=== PATIENT | female | born 1930 | race Caucasian/White ===

== ENCOUNTER 2016-04-24 16:20 | Emergency (ER) | payer MEDICARE, OTHER ==
[~2016-04-24] VITALS: Ht 160 cm; Wt 72.6 kg
[~2016-04-24 16:20] MED LIST: ASPI-892; BP MED?; CALC-671; CALC-793; CYCL10TA45 PO; FAMO-119 PO; FOLI0.4T2 PO; HYDR-3812 PO; HYDR1CAP2; IBUP-15 PO; IBUP-30 PO; LISI10TA; LISI10TA2 PO; LISI20TA; METO25TA PO; MULT-608; NIAC400C2; OMEG-12 PO; OMEG1CAP24 PO; OMEP-10; PRD20T PO; RANI150T90 PO; SULF-222 PO; TRAM50TA2 PO; VITAMIN B12 SHOT; [UNRECOGNIZED DRUG - OTHER]; fiber therapy
--- OUTSIDE RECORDS SUMMARY | 2016-04-24 16:26 | XMS REPORT | Continuity of Care Document ---
Author Author [facility] Organization [facility] Address Unknown Phone Unavailable Care Team Providers Care Manager Internship Name Role Phone FRANCES SHEN MD PCP Insurance Providers Payer Name Policy Number Subscriber Name Relationship Wps Medicare [id number] Janine Huang 18 Self / Same As Patient Comm Crossover Enter Ins Name [id number] Janine Huang 18 Self / Same As Patient Advance Directives Directive Response Recorded Date/Time Advance Directives No 06/16/13 7:27pm Health Care Power of Field Services Analyst No 06/16/13 7:27pm Organ Donor Yes 06/16/13 7:27pm Problems No known problems or medical conditions. Medications Medication Dose Route Sig Days/Qty Instructions Order Date Discontinued Date Status [Bp Med?] 06/23/08 02/19/09 Discontinued Lisinopril (Zestril) 02/12/09 04/07/09 Discontinued Omeprazole 02/12/09 10/01/11 Discontinued Calcium Carbonate/Vitamin D3 02/12/09 04/07/09 Discontinued Niacin 02/12/09 04/07/09 Discontinued [Natural Veg Laxative] 02/12/09 04/07/09 Discontinued Hydrocodone Bit/Acetaminophen 02/12/09 04/07/09 Discontinued Lisinopril (Zestril) 04/07/09 10/01/11 Discontinued Calcium/Vitamin D 04/07/09 05/13/13 Discontinued Multivitamins 04/07/09 05/13/13 Discontinued Aspirin 04/07/09 06/16/13 Discontinued Ranitidine Hcl 150 Mg PO DAILY 10/01/11 05/13/13 Discontinued Folic Acid 2 Each PO DAILY 10/01/11 05/13/13 Discontinued Ibuprofen 400 Mg PO 10/01/11 05/13/13 Discontinued Ibuprofen 1 Each PO BEDTIME 10/01/11 05/13/13 Discontinued [fiber therapy] 10/01/11 05/13/13 Discontinued [place]-3 Fatty Acids/Fish Oil 1 Each PO DAILY 10/01/11 05/13/13 Discontinued Metoprolol Succinate (Toprol Xl) 1 Each PO DAILY 10/01/11 05/13/13 Discontinued Lisinopril 20 Mg PO 05/13/13 Active [Vitamin B12 Shot] 05/13/13 Active Tramadol Hcl 50 Mg PO EVERY 4HRS PRN PAIN 10 Qty 05/13/13 06/16/13 Discontinued Cyclobenzaprine Hcl 10 Mg PO EVERY 8HRS PRN SPASMS 10 Qty 05/13/1311/20 Discontinued [place]-3/Dha/Epa/Fish Oil 1 Each PO DAILY 06/16/13 Active Trimethoprim/Sulfamethoxazole 1 Ea PO TWICE A DAY 14 Qty 06/16/13 Active Social History Social History Problem Response Recorded Date/Time Alcohol Use Denies Use 06/16/2013 7:27pm Recreational Drug Use No 06/16/2013 7:27pm Recent Foreign Travel No 11/27/2013 2:07pm Hospital Discharge Instructions No hospital discharge instructions. Plan of Care No plan of care. Functional Status No functional status results. Allergies, Adverse Reactions, Alerts Allergen Type Severity Reaction Status Last Updated penicillin G Allergy Unknown Active 08/29/06 Gatifloxacin Allergy Unknown Active 02/21/09 Immunizations Name Given Type Date of Pneumonia Vaccine 02/22/12 Historical Vital Signs No known vital signs results. Results No known relevant diagnostic tests, laboratory data and/or discharge summary. Procedures No known history of procedures. Encounters Encounter Location Date/Time Discharged Recurring [facility] 12/28/13 9:13am
--- NOTE | 2016-04-24 16:54 | Diagnostic Imaging Report ---
INDICATION: Right shoulder humerus pain. COMPARISON: None. EXAMINATION: Two views of the right humerus were obtained. FINDINGS: No fracture or dislocation. Articular surfaces are age-appropriate. There is no osseous lesion. IMPRESSION: No fracture or dislocation. Dictated by: Dictated on workstation # [id number]
--- NOTE | 2016-04-24 16:58 | Diagnostic Imaging Report ---
INDICATION: Right shoulder pain. COMPARISON: None. FINDINGS: 3 views of the right shoulder demonstrate no fracture or dislocation. Mild degenerative changes are present. No osseous lesion. IMPRESSION: No fracture or dislocation. Dictated by: Dictated on workstation # [id number]
--- NOTE | 2016-04-24 17:07 | ED General ---
General Chief Complaint: Upper Extremity Stated Complaint: R SHOULDER/ARM PAIN Nursing Triage Note: Patient advises she has been experiencing arm pain for several days that has become progressively worse. Patient advises limited range of motion and significant pain. Nursing Sepsis Screen: No Definite Risk Source of Information: Patient Exam Limitations: No Limitations History of Present Illness Time Seen by Provider: 16:37 Initial Comments This 85-year-old woman presents to the emergency room with right upper arm pain since last Tuesday. Pain has been worsening over the past couple of days. Pain is worse with movement. She denies any known injury. The distal right upper extremity is relatively unremarkable. Patient uses her cane with this arm. Allergies and Home Medications Allergies Coded Allergies: gatifloxacin (Verified Allergy, Unknown, 02/21/09) penicillin G (Verified Allergy, Unknown, 08/29/06) Home Medications Famotidine 20 Mg Tablet #20 20 MG PO BID Prescribed by: GLYNN NINO on 09/29/15 1154 Lisinopril 10 Mg Tablet 20 MG PO (Reported) [place]-3/Dha/Epa/Fish Oil 1 Each Capsule.dr 1 EACH PO DAILY (Reported) Prednisone 10 Mg Tab #9 10 MG PO UD Take 2 daily for 3 days, then 1 daily for 3 days Prescribed by: MYLENE GOINS on 04/24/16 1806 Constitutional: no symptoms reported EENTM: no symptoms reported Respiratory: no symptoms reported Cardiovascular: no symptoms reported Gastrointestinal: no symptoms reported Genitourinary: no symptoms reported Musculoskeletal: see HPI Skin: no symptoms reported Psychiatric/Neurological: No Symptoms Reported Hematologic/Lymphatic: No Symptoms Reported Past Oyxdvug-Cwwfrs-Iftqwc Hx Patient Social History Alcohol Use: Denies Use Recreational Drug Use: No Smoking Status: Never a Smoker 2nd Hand Smoke Exposure: No Recent Foreign Travel: No Contact w/Someone Who Travel: No Recent Infectious Disease Expo: No Recent Hopitalizations: No Immunizations Up To Date Tetanus Booster (TDap): More than 5yrs Date of Pneumonia Vaccine: Feb 22, 2012 Seasonal Allergies Seasonal Allergies: No Surgeries HX Surgeries: Yes (L TOTAL KNEE REPLACEMENT) Respiratory Hx Respiratory Disorders: No Cardiovascular Hx Cardiac Disorders: Yes Cardiac Disorders: Hypertension Neurological Hx Neurological Disorders: No Reproductive System Hx Reproductive Disorders: No Sexually Transmitted Disease: No HIV/AIDS: No Female Reproductive Disorders: Denies Genitourinary Hx Genitourinary Disorders: No Gastrointestinal Hx Gastrointestinal Disorders: Yes Gastrointestinal Disorders: Chronic Constipation Musculoskeletal Hx Musculoskeletal Disorders: Yes (SPINAL STENOSIS) Musculoskeletal Disorders: Arthritis, Chronic Back Pain Endocrine Hx Endocrine Disorders: No HEENT HX ENT Disorders: No Loss of Vision: Denies Hearing Impairment: Hard of Hearing Cancer Hx Cancer: No Psychosocial Hx Psychiatric Problems: No Behavioral Health Disorders: Anxiety Integumentary HX Skin/Integumentary Disorder: No Blood Transfusions Hx Blood Disorders: No Adverse Reaction to a Blood Tr: No Family Medical History Significant Family History: No Pertinent Family Hx Physical Exam Vital Signs Vital Sign - Last 12Hours 04/24/16 16:33 Temp 97.8 Pulse 70 Resp 16 B/P 165/95 Pulse Ox 97 O2 Delivery Room Air Capillary Refill : Less Than 3 Seconds General Appearance: WD/WN Mild Distress HEENT: PERRL/EOMI Normal ENT Inspection Neck: Normal Inspection Non Tender Respiratory: Chest Non Tender Lungs Clear Normal Breath Sounds No Accessory Muscle Use No Respiratory Distress Cardiovascular: Regular Rate, Rhythm No Edema No Murmur Extremity: Normal Inspection Other (decreased range of motion in the shoulder secondary to pain. Although difficult to localize, tenderness seems to be focused around the anterior half of the deltoid muscle. This portion of the muscle seems to have a spasm) Neurologic/Psychiatric: Alert Oriented x3 No Motor/Sensory Deficits Normal Mood/Affect senior oracle dba II-XII Norm as Tested Progress/Results/Core Measures Results/Orders My Orders Medications Given in ED Vital Signs/I&O Blood Pressure Mean: 118 Progress Note : Progress Note Patient was given injections of Norflex and Toradol. X-rays were unremarkable. She had only modest improvement in pain with treatment. Prednisone was added. Diagnostic Imaging Diagonstic Imaging: Xray Plain Films/CT/US/NM/MRI: other (right shoulder) Comments Right shoulder x-ray viewed by me and report reviewed. See report below: NAME: JANINE CORONADO J MED REC#: [id number] PT STATUS: REG ER : 1930 PHYSICIAN: MYLENE LOPEZ MD ADMIT DATE: 04/24/16/ER Draft Date of Exam:04/24/16 SHOULDER, RIGHT, 3 VIEWS INDICATION: Right shoulder pain. COMPARISON: None. FINDINGS: 3 views of the right shoulder demonstrate no fracture or dislocation. Mild degenerative changes are present. No osseous lesion. IMPRESSION: No fracture or dislocation. Dictated on workstation # [id number] Dict: 04/24/161649 Trans: 04/24/161656 [id number] Interpreted by: TORO STEPHENS Diagonstic Imaging: Xray Plain Films/CT/US/NM/MRI: other (right humerus) Comments Right humerus x-ray viewed by me and report reviewed. See report below: NAME: JANINE CORONADO MED REC#: [id number] PT STATUS: REG ER : 1930 PHYSICIAN: MYLENE LOPEZ MD ADMIT DATE: 04/24/16/ER Signed Date of Exam:04/24/16 HUMERUS, RIGHT, 2 VIEWS INDICATION: Right shoulder humerus pain. COMPARISON: None. EXAMINATION: Two views of the right humerus were obtained. FINDINGS: No fracture or dislocation. Articular surfaces are age-appropriate. There is no osseous lesion. IMPRESSION: No fracture or dislocation. Dictated by: Dictated on workstation # [id number] Dict: 04/24/161649 Trans: 04/24/161656 [facility] [id number] Interpreted by: TORO STEPHENS Electronically signed by: TORO STEPHENS 04/24/161658 Departure Impression Impression: Primary Impression: Muscle spasm Additional Impression: Right shoulder pain Qualified Code: M25.511 - Pain in right shoulder Disposition: 01 HOME, SELF-CARE Condition: Improved Departure-Patient Inst. Decision time for Depature: 18:00 Referrals: SANDRINE SOUZA MD (PCP/Family) Primary Care Physician Patient Instructions: Muscle Spasms (DC) Add. Discharge Instructions: You likely have a strain and/or spasm of the right shoulder. Complete the prednisone as prescribed. Follow-up with your primary care provider early next week. Return to the ER if symptoms worsen. You may also try taking ibuprofen 400 mg every 6 hours as needed. Take prednisone and ibuprofen with food or milk to avoid irritation on your stomach. All discharge instructions reviewed with patient and/or family. Voiced understanding. Scripts Prednisone 10 Mg Tab10 Mg PO UD #9 TAB Take 2 daily for 3 days, then 1 daily for 3 days Prov:MYLENE LOPEZ MD 04/24/16 MYLENE LOPEZ MD Apr 24, 2016 17:06 All discharge instructions reviewed with patient and/or family. Voiced understanding. Scripts Prednisone 10 Mg Tab10 Mg PO UD #9 TAB Take 2 daily for 3 days, then 1 daily for 3 days Prov:MYLENE LOPEZ MD 04/24/16 MYLENE LOPEZ MD Apr 24, 2016 17:06
[2016-04-24] MEDS ORDERED: ORPHENADRINE 60 MG/2 ML (NORFLEX) AMP IM ONE (17:15)
[2016-04-24] MEDS ORDERED: KETOROLAC 30 MG/ML VIAL IM ONE (17:15)
[2016-04-24] MEDS ORDERED: predniSONE 10 MG TAB PO ONE (18:00)
[2016-04-24] MEDS ORDERED: PRD10T PO (18:06)
[2016-04-24 18:25] VITALS: BP 164/83
== END 2016-04-24 18:24 | disposition home or self-care (01) ==
LOC: EDUNIT# 16:20 → ER 16:22
DX: M25.511 Pain in right shoulder (principal); M62.838 Other muscle spasm
CPT/HCPCS: 73030; 73060; 96372; 99282

== ENCOUNTER → 2016-05-17 | Outpatient (CLI) | payer MEDICARE, OTHER ==
[~2016-05-17] MED LIST changes: +PRD10T PO
--- NOTE | 2016-05-17 10:40 | Diagnostic Imaging Report ---
PROCEDURE: MRI right joint upper extremity without contrast. TECHNIQUE: Multiplanar, multisequence non contrast-enhanced MRI of the right upper extremity was accomplished. INDICATION: Right shoulder pain FINDINGS: There is no os acromiale or Hill-Sachs deformity. There is superior subluxation of the humeral head abutting the undersurface of the acromion. The acromion has a laterally downsloping configuration abutting the lateral superior aspect of the humeral head and could be an underlying etiology of impingement to the rotator cuff. At this point, the rotator cuff demonstrates a full-thickness retracted tear that involves both the supraspinatus and infraspinatus tendons with approximately 2.6 cm retraction from the insertion point. The subscapular tendon demonstrates thickening compatible with tendinosis with deep fiber partial tear. The long head biceps tendon appears to be within its groove. The acromioclavicular joint demonstrates degenerative changes with small inferior osteophytes. There is subchondral edema and small joint effusion. There is small amount of fluid in the subacromial subdeltoid bursa and around the shoulder girdle muscles which could be in part extension from the fluid of the bursa with possible soft tissue posttraumatic or inflammatory reactive changes. No significant focal fluid collection however. Small glenohumeral joint effusion is seen. There is abnormal signal suggested in the inferior and superior labrum segments suggestive of degeneration or tear. Labrum however can be better evaluated with MR arthrogram study if needed. There is mild atrophy of the muscles around the shoulder. IMPRESSION: 1. Full-thickness retracted supraspinatus and infraspinatus tears. 2. Laterally downsloping configuration of the acromion. 3. Labrum abnormal signal suggestive of tears or degeneration in the upper and lower aspects. Dictated by: Dictated on workstation # [id number]
== END ==
LOC: RAD 09:23
PROVIDERS: ATTEND Nurse Practitioner Family
DX: S46.011A Strain of muscle(s) and tendon(s) of the rotator cuff of right shoulder, initial encounter (principal); X58.XXXA Exposure to other specified factors, initial encounter; Y99.8 Other external cause status
CPT/HCPCS: 73221

== ENCOUNTER 2017-01-20 05:59 | Outpatient (CLI) | payer MEDICARE, OTHER ==
[~2017-01-20] VITALS: Ht 160 cm; Wt 77.1 kg
[2017-01-20] MEDS ORDERED: RANI-515 PO (12:33)
[2017-01-20] MEDS ORDERED: MULT-35 PO (12:33)
== END 2017-01-20 12:37 ==
LOC: PREOP 05:59
PROVIDERS: ATTEND Surgery
DX: Z01.818 Encounter for other preprocedural examination (principal); Z12.11 Encounter for screening for malignant neoplasm of colon

== ENCOUNTER → 2017-06-10 | Outpatient (CLI) | payer MEDICARE, OTHER ==
[~2017-06-10] MED LIST changes: +ACHD5005 PO; +CYCL10TA9 PO; -HYDR-3812 PO; +MULT-35 PO; +RANI-515 PO
--- NOTE | 2017-06-10 10:06 | Diagnostic Imaging Report ---
PROCEDURE: CT abdomen and pelvis without contrast. TECHNIQUE: Multiple contiguous axial images were obtained through the abdomen and pelvis without the use of intravenous contrast. INDICATION: Abdominal pain. COMPARISON: Comparison is made with prior CT from 06/16/2013. FINDINGS: Imaging through the lung bases does show linear parenchymal densities suggestive of scarring or atelectasis. Liver is unremarkable apart from a tiny low density in the right lobe inferiorly measuring 7 mm, appears too small to characterize but likely cysts. The gallbladder is unremarkable. The pancreas and spleen are unremarkable. No adrenal mass is identified. There appear to be parapelvic cysts within both kidneys. There is a small approximately 2-3 mm nonobstructing calculus lower pole right kidney. Aorta is heavily calcified but nonaneurysmal. The small and large bowel loops are of normal caliber. There is diverticulosis of the colon but no evidence of acute diverticulitis. The bladder and uterus are unremarkable. There is no ascites. No inflammatory process is seen. Lumbar spine demonstrates multilevel severe spondylosis. IMPRESSION: 1. Uncomplicated diverticulosis. 2. Nonobstructing right renal calculus. 3. No acute feature is detected. Dictated by: Dictated on workstation # [id number]
== END ==
LOC: RAD 09:29
PROVIDERS: ATTEND Family Medicine
DX: K57.90 Diverticulosis of intestine, part unspecified, without perforation or abscess without bleeding (principal); N20.0 Calculus of kidney
CPT/HCPCS: 74176

== ENCOUNTER 2017-06-19 10:28 | Emergency (ER) | payer MEDICARE, OTHER ==
[~2017-06-19] VITALS: Ht 160 cm; Wt 77.1 kg
[~2017-06-19 10:28] MED LIST changes: -CYCL10TA9 PO
--- OUTSIDE RECORDS SUMMARY | 2017-06-19 10:33 | XMS REPORT | Continuity of Care Document ---
Author Author [facility] Organization [facility] Address Unknown Phone Unavailable Allergies Active Description Code Type Severity Reaction Onset Reported/Identified Relationship to Patient Clinical Status Yes Gatifloxacin [id number] Drug Allergy Unknown N/A 01/20/2017 Yes penicillin G [id number] Drug Allergy Unknown N/A 01/20/2017 Medications There is no data. Problems Date Dx Coded Attending Type Code Diagnosis Diagnosed By 05/14/2013 SANDRINE SOUZA MD Ot 300.00 ANXIETY STATE NOS 05/14/2013 SANDRINE SOUZA MD Ot 355.9 MONONEURITIS NOS 05/14/2013 SANDRINE SOUZA MD Ot 401.9 HYPERTENSION NOS 05/14/2013 SANDRINE SOUZA MD Ot 564.09 OTHER CONSTIPATION 05/14/2013 SANDRINE SOUZA MD Ot 715.90 OSTEOARTHROS NOS-UNSPEC 05/14/2013 SANDRINE SOUZA MD Ot 719.41 JOINT PAIN-SHLDER 05/14/2013 SANDRINE SOUZA MD Ot 723.1 CERVICALGIA 05/14/2013 SANDRINE SOUZA MD Ot 728.85 SPASM OF MUSCLE 05/14/2013 SANDRINE SOUZA MD Ot 848.9 SPRAIN NOS 05/14/2013 SANDRINE SOUZA MD Ot 924.9 CONTUSION NOS 05/14/2013 SANDRINE SOUZA MD Ot E000.8 OTHER EXTERNAL CAUSE STATUS 05/14/2013 SANDRINE SOUZA MD Ot E029.9 OTHER ACTIVITY 05/14/2013 SANDRINE SOUZA MD Ot E849.0 ACCIDENT IN HOME 05/14/2013 SANDRINE SOUZA MD Ot E885.9 FALL FROM SLIPPING, TRIPPING, OR STUMBLI 05/14/2013 SANDRINE SOUZA MD Ot V17.49 FAMILY HISTORY OF OTHER CARDIOVASCULAR D 05/14/2013 SANDRINE SOUZA MD Ot V43.65 KNEE JOINT REPLACEMENT STATUS 05/14/2013 HARLEY PEÑA, SANDRINE Pedraza Ot V58.66 LONG-TERM (CURRENT) USE OF ASPIRIN 06/16/2013 YORDY WALLS HOME HEALTH PROVIDER Ot 593.9 RENAL URETERAL DIS NOS 06/16/2013 YORDY WALLS HOME HEALTH PROVIDER Ot 599.0 URIN TRACT INFECTION NOS 06/16/2013 YORDY WALLS HOME HEALTH PROVIDER Ot 789.00 ABDOMINAL PAIN, UNSPECIFIED SITE 12/28/2013 HERMELINDA PEÑA, FRANCES Vasquez Ot 724.02 SPINAL STENOSIS, LUMBAR REG, W/OUT NEURO 12/28/2013 FRANCES SHEN MD Ot V57.1 PHYSICAL THERAPY NEC 12/02/2014 KYAW VILLEGAS HOME HEALTH PROVIDER Ot R13.19 12/02/2014 KYAW VILLEGAS HOME HEALTH PROVIDER Ot R49.0 12/10/2014 Ot 401.9 12/10/2014 Ot 786.50 12/10/2014 Ot 396.3 12/10/2014 Ot 786.09 12/10/2014 Ot 272.4 12/10/2014 Ot 401.9 12/10/2014 Ot 786.50 12/10/2014 KYAW VILLEGAS HOME HEALTH PROVIDER Ot R13.19 12/10/2014 KYAW VILLEGAS HOME HEALTH PROVIDER Ot R49.0 12/10/2014 Ot 396.3 12/10/2014 Ot 786.09 12/10/2014 Ot 272.4 12/10/2014 Ot 401.9 12/10/2014 Ot 786.50 12/10/2014 KYAW VILLEGAS HOME HEALTH PROVIDER Ot R13.19 12/10/2014 KYAW VILLEGAS HOME HEALTH PROVIDER Ot R49.0 12/20/2014 KYAW VILLEGAS HOME HEALTH PROVIDER Ot R13.19 12/20/2014 KYAW VILLEGAS HOME HEALTH PROVIDER Ot R49.0 01/06/2015 NEDA PRINCE Ot M54.2 01/17/2015 KYAW VILLEGAS HOME HEALTH PROVIDER Ot M47.812 01/22/2015 VISHNU PEÑA, RAJWINDER Nguyen Ot G44.209 TENSION-TYPE HEADACHE, UNSPECIFIED, NOT 01/22/2015 RAJWINDER MARES MD Ot J34.1 CYST AND MUCOCELE OF NOSE AND NASAL SINU 01/22/2015 RAJWINDER MARES MD Ot M47.812 SPONDYLOSIS W/O MYELOPATHY OR RADICULOPA 03/13/2015 Ot M41.126 ADOLESCENT IDIOPATHIC SCOLIOSIS, LUMBAR 03/13/2015 Ot M47.816 SPONDYLOSIS W/O MYELOPATHY OR RADICULOPA 03/13/2015 Ot M54.6 PAIN IN THORACIC SPINE 09/29/2015 GLYNN FORD Ot L24.5 IRRITANT CONTACT DERMATITIS DUE TO OTHER 09/29/2015 GLYNN FORD Ot R21 RASH AND OTHER NONSPECIFIC SKIN ERUPTION 09/30/2015 GLYNN FORD Ot L24.5 IRRITANT CONTACT DERMATITIS DUE TO OTHER 09/30/2015 GLYNN FORD Ot R21 RASH AND OTHER NONSPECIFIC SKIN ERUPTION 04/24/2016 JESSICA PEÑA, MYLENE Kearney Ot M25.511 PAIN IN RIGHT SHOULDER 04/24/2016 JESSICA PEÑA, MYLENE Kearney Ot M62.838 OTHER MUSCLE SPASM 04/24/2016 Ot 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 04/24/2016 Ot 786.09 RESPIRATORY ABNORM NEC 04/24/2016 Ot 272.4 HYPERLIPIDEMIA NEC/NOS 04/24/2016 Ot 401.9 HYPERTENSION NOS 04/24/2016 Ot 786.50 CHEST PAIN NOS 04/24/2016 KYAW VILLEGAS APRN Ot R13.19 OTHER DYSPHAGIA 04/24/2016 KYAW VILLEGAS APRN Ot R49.0 DYSPHONIA 04/24/2016 NEDA PRINCE Ot M54.2 CERVICALGIA 04/24/2016 KYAW VILLEGAS APRN Ot M47.812 SPONDYLOSIS W/O MYELOPATHY OR RADICULOPA 04/24/2016 BUDDY TRACEY MD Ot M47.812 SPONDYLOSIS W/O MYELOPATHY OR RADICULOPA 04/24/2016 BUDDY TRACEY MD Ot 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, 04/24/2016 BUDDY TRACEY MD Ot Z79.899 OTHER CASINO RUNNER (CURRENT) DRUG THERAPY 05/18/2016 KYAW VILLEGAS APRN Ot S46.011A STRAIN OF MUSC/TEND THE ROTATOR CUFF OF 05/18/2016 KYAW VILLEGAS APRN Ot X58.XXXA EXPOSURE TO OTHER SPECIFIED FACTORS, INI 05/18/2016 KYAW VILLEGAS APRN Ot Y99.8 OTHER EXTERNAL CAUSE STATUS 06/08/2016 KYAW VILLEGAS APRN Ot S46.011A STRAIN OF MUSC/TEND THE ROTATOR CUFF OF 06/08/2016 KYAW VILLEGAS APRN Ot X58.XXXA EXPOSURE TO OTHER SPECIFIED FACTORS, INI 06/08/2016 KYAW VILLEGAS HOME HEALTH PROVIDER Ot Y99.8 OTHER EXTERNAL CAUSE STATUS 01/20/2017 MONICA PEÑA, ARVIND Tierney Ot Z01.818 ENCOUNTER FOR OTHER PREPROCEDURAL EXAMIN 01/20/2017 MONICA PEÑA, ARVIND Tierney Ot Z12.11 ENCOUNTER FOR SCREENING FOR MALIGNANT NE 01/21/2017 MONICA PEÑA, ARVIND Tierney Ot Z01.818 ENCOUNTER FOR OTHER PREPROCEDURAL EXAMIN 01/21/2017 MONICA PEÑA, ARVIND Tierney Ot Z12.11 ENCOUNTER FOR SCREENING FOR MALIGNANT NE 01/26/2017 MONICA PEÑA, ARVIND Tierney Ot Z01.818 ENCOUNTER FOR OTHER PREPROCEDURAL EXAMIN 01/26/2017 MONICA PEÑA, ARVIND Tierney Ot Z12.11 ENCOUNTER FOR SCREENING FOR MALIGNANT NE 06/08/2017 KYAW VILLEGAS APRN Ot R13.19 OTHER DYSPHAGIA 06/08/2017 KYAW VILLEGAS APRN Ot R49.0 DYSPHONIA 06/08/2017 NEDA PRINCE Ot M54.2 CERVICALGIA 06/08/2017 KYAW VILLEGAS APRN Ot M47.812 SPONDYLOSIS W/O MYELOPATHY OR RADICULOPA 06/08/2017 BUDDY TRACEY MD Ot M47.812 SPONDYLOSIS W/O MYELOPATHY OR RADICULOPA 06/08/2017 BUDDY TRACEY MD Ot 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, 06/08/2017 BUDDY TRACEY MD Ot Z79.899 OTHER CASINO RUNNER (CURRENT) DRUG THERAPY 06/08/2017 KYAW VILLEGAS APRN Ot S46.011A STRAIN OF MUSC/TEND THE ROTATOR CUFF OF 06/08/2017 KYAW VILLEGAS APRN Ot X58.XXXA EXPOSURE TO OTHER SPECIFIED FACTORS, INI 06/08/2017 KYAW VILLEGAS APRN Ot Y99.8 OTHER EXTERNAL CAUSE STATUS 06/13/2017 HARLEY PEÑA, SANDRINE Pedraza Ot K57.90 DVRTCLOS OF INTEST, PART UNSP, W/O PERF 06/13/2017 HARLEY PEÑA, SANDRINE Pedraza Ot N20.0 CALCULUS OF KIDNEY Procedures Code Description Performed By Performed On 81.54 TOTAL KNEE REPLACEMENT 02/19/2009 Results There is no data. Encounters ACCT No. Visit Date/Time Discharge Status Pt. Type Provider Facility Loc./Unit Complaint [id number] 06/10/2017 09:29:00 06/10/2017 23:59:59 CLS Outpatient HARLEY PEÑA, SANDRINE Pedraza [facility] RAD ABDOMINAL PAIN [id number] 01/27/2017 09:00:00 01/27/2017 23:59:59 CLS Preadmit ARVIND ANDERSON MD [facility] ENDO SCREENING [id number] 01/20/2017 05:59:00 01/20/2017 12:37:00 DIS Outpatient MONICA PEAÑ, ARVIND Tierney [facility] PREOP COLONOSCOPY [id number] 05/17/2016 09:23:00 05/17/2016 23:59:59 CLS Outpatient KYAW VILLEGAS APRN [facility] RAD RIGHT SHOULDER PAIN [id number] 04/24/2016 16:22:00 04/24/2016 18:24:00 DIS Emergency JESSICA PEÑA, MYLENE Kearney [facility] ER R SHOULDER/ARM PAIN [id number] 09/29/2015 10:52:00 09/29/2015 12:25:00 DIS Emergency GLYNN FORD [facility] ER POSS EYE/SKIN CONTACT W/ANT POISON [id number] 02/10/2015 13:24:00 02/10/2015 23:59:59 CLS Outpatient ALEXY PEÑA, BUDDY Knutson [facility] CARD DISC DISORDER WITH RADICULOPATHY [id number] 01/22/2015 13:44:00 01/22/2015 16:56:00 DIS Emergency RAJWINDER MARES MD [facility] ER HEADACHE/NECK PAIN [id number] 12/27/2014 09:11:00 12/27/2014 23:59:59 CLS Outpatient KYAW VILLEGAS APRN [facility] RAD SEVERE DEGENERATIVE DISEASE [id number] 12/10/2014 11:15:00 12/10/2014 23:59:59 CLS Outpatient NEDA PRINCE TIP PUNCHER [facility] RAD NECK PAIN [id number] 11/27/2014 09:16:00 11/27/2014 23:59:59 CLS Outpatient BAKARIKYAW APRN [facility] RAD HOARSNESS, DIFFICULTY SWALLOWING,DYSPHAGIA [id number] 12/28/2013 09:13:00 12/28/2013 15:43:00 DIS Outpatient HERMELINDA PEÑA, FRANCES Vasquez [facility] REHAB LUMBAR STENOSIS [id number] 06/16/2013 19:20:00 06/16/2013 21:38:00 DIS Emergency YORDY WALLS APRN [facility] ER STOMACH PAIN FEVER [id number] 05/13/2013 20:50:00 05/14/2013 11:08:00 DIS Inpatient HARLEY PEÑA, SANDRINE Pedraza [facility] ICU INTRACTABLE PAIN;ADVERSE REACTION TO MORPHINE SULF [id number] 01/20/2017 14:38:00 Document Registration [id number] 03/13/2015 17:37:00 Document Registration [id number] 12/10/2014 11:00:00 Document Registration [id number] 10/04/2011 08:06:00 Document Registration [id number] 06/23/2011 09:43:00 Document Registration [id number] 12/24/2009 11:02:00 Document Registration [id number] 12/08/2016 12:07:46 12/08/2016 23:59:59 CLS Outpatient
--- NOTE | 2017-06-19 10:41 | ED Lower Extremity ---
General Stated Complaint: LEG PAIN Source: patient, EMS Exam Limitations: no limitations History of Present Illness Date Seen by Provider: June 19, 2017 Time Seen by Provider: 10:31 Initial Comments The patient presents to the ER by EMS with a chief complaint of for the past 2 weeks she's had progressively worsening left hip pain deep in her groin. She says is worse when she moves her left leg. She has had her left knee replaced years ago but not her left hip. She has no recent history of trauma, car wreck, falls etc. She gets around using a cane as well as a walker but she says today she was unable to even hardly get out of bed. She says it took 2 hours to put herself to bed last night because flexing the hip is so painful. She denies any dysuria, fevers, chills, nausea or vomiting. She's been using Mobic and her routine pain medicines. She has an appointment in 2 days with her orthopedic surgeon Drs. Hamilton to discuss her hip. Allergies and Home Medications Allergies Coded Allergies: gatifloxacin (Verified Allergy, Unknown, 01/20/17) penicillin G (Verified Allergy, Unknown, 01/20/17) Home Medications Multivitamin 1 Each Tablet, 1 EACH PO DAILY, (Reported) Ranitidine HCl 150 Mg Tablet, 150 MG PO DAILY, (Reported) Patient Home Medication List Home Medication List Reviewed: Yes Constitutional: No chills, No diaphoresis EENTM: No ear discharge, No ear pain, No blurred vision, No double vision Respiratory: No cough, No short of breath Cardiovascular: No chest pain, No edema, No Hx of Intervention, No palpitations Gastrointestinal: No abdominal pain, No constipation, No diarrhea, No nausea, No vomiting Genitourinary: No discharge, No dysuria Musculoskeletal: see HPI; No back pain; joint pain Past Laraqzt-Xgoupk-Sfrdcb Hx Patient Social History 2nd Hand Smoke Exposure: No Recent Hopitalizations: No Immunizations Up To Date Tetanus Booster (TDap): More than 5yrs Date of Pneumonia Vaccine: Feb 22, 2012 Seasonal Allergies Seasonal Allergies: No Past Medical History Hypertension Reproductive Disorders: No Female Reproductive Disorders: Denies Sexually Transmitted Disease: No HIV/AIDS: No Chronic Constipation Arthritis, Chronic Back Pain Loss of Vision: Bilateral Hearing Impairment: Hard of Hearing Anxiety Adverse Reaction/Blood Tranf: No (N/A) Family Medical History No Pertinent Family Hx Physical Exam Vital Signs Vital Signs - First Documented 06/19/17 10:29 Temp 98.2 Pulse 80 Resp 18 B/P (MAP) 175/134 (148) Pulse Ox 96 Capillary Refill : General Appearance: WD/WN, no apparent distress HEENT: PERRL/EOMI, pharynx normal Neck: non-tender, supple, normal inspection Cardiovascular: normal peripheral pulses, regular rate, rhythm Respiratory: chest non-tender, lungs clear, normal breath sounds, no respiratory distress, no accessory muscle use Gastrointestinal: normal bowel sounds, non tender, soft, no organomegaly, no pulsatile mass Back: normal inspection, no vertebral tenderness Hips: right hip non-tender; bilateral hip normal inspection; right hip normal range of motion, right hip no evidence of injury; left hip bone tenderness, left hip limited range of motion (Limited flexion secondary to pain), left hip pain, left hip soft tissue tenderness Legs: bilateral leg non-tender, bilateral leg normal inspection, bilateral leg normal range of motion, bilateral leg no evidence of injury Knees: bilateral knee non-tender, bilateral knee normal inspection, bilateral knee normal range of motion, bilateral knee no evidence of injury Neurologic/Tendon: normal sensation, normal motor functions, normal tendon functions, responds to pain, no evidence tendon injury Neurologic/Psychiatric: alert, normal mood/affect, oriented x 3 Skin: normal color, warm/dry Progress/Results/Core Measures Results/Orders Lab Results Laboratory Tests Test 06/19/17 10:50 06/19/17 13:10 Range/Units White Blood Count 6.0 4.3-11.0 10^3/uL Red Blood Count 3.80 L 4.35-5.85 10^6/uL Hemoglobin 12.2 11.5-16.0 G/DL Hematocrit 37 35-52 % Mean Corpuscular Volume 98 80-99 FL Mean Corpuscular Hemoglobin 32 25-34 PG Mean Corpuscular Hemoglobin Concent 33 32-36 G/DL Red Cell Distribution Width 13.4 10.0-14.5 % Platelet Count 185 130-400 10^3/uL Mean Platelet Volume 11.5 H 7.4-10.4 FL Neutrophils (%) (Auto) 70 42-75 % Lymphocytes (%) (Auto) 18 12-44 % Monocytes (%) (Auto) 10 0-12 % Eosinophils (%) (Auto) 2 0-10 % Basophils (%) (Auto) 0 0-10 % Neutrophils # (Auto) 4.2 1.8-7.8 X 10^3 Lymphocytes # (Auto) 1.1 1.0-4.0 X 10^3 Monocytes # (Auto) 0.6 0.0-1.0 X 10^3 Eosinophils # (Auto) 0.1 0.0-0.3 10^3/uL Basophils # (Auto) 0.0 0.0-0.1 10^3/uL Sodium Level 140 135-145 MMOL/L Potassium Level 4.0 3.6-5.0 MMOL/L Chloride Level 109 H 98-107 MMOL/L Carbon Dioxide Level 21 21-32 MMOL/L Anion Gap 10 5-14 MMOL/L Blood Urea Nitrogen 16 7-18 MG/DL Creatinine 0.84 0.60-1.30 MG/DL Estimat Glomerular Filtration Rate > 60 BUN/Creatinine Ratio 19 Glucose Level 93 70-105 MG/DL Calcium Level 9.8 8.5-10.1 MG/DL Total Bilirubin 0.5 0.1-1.0 MG/DL Aspartate Amino Transf (AST/SGOT) 15 5-34 U/L Alanine Aminotransferase (ALT/SGPT) 10 0-55 U/L Alkaline Phosphatase 66 40-136 U/L C-Reactive Protein High Sensitivity 0.47 0.00-0.50 MG/DL Total Protein 6.2 L 6.4-8.2 GM/DL Albumin 3.8 3.2-4.5 GM/DL Urine Color YELLOW Urine Clarity CLEAR Urine pH 7 5-9 Urine Specific [place] 1.010 L 1.016-1.022 Urine Protein NEGATIVE NEGATIVE Urine Glucose (UA) NEGATIVE NEGATIVE Urine Ketones NEGATIVE NEGATIVE Urine Nitrite NEGATIVE NEGATIVE Urine Bilirubin NEGATIVE NEGATIVE Urine Urobilinogen NORMAL NORMAL MG/DL Urine Leukocyte Esterase NEGATIVE NEGATIVE Urine RBC (Auto) NEGATIVE NEGATIVE Urine RBC RARE /HPF Urine WBC NONE /HPF Urine Crystals NONE /LPF Urine Bacteria NEGATIVE /HPF Urine Casts NONE /LPF Urine Mucus NEGATIVE /LPF Urine Culture Indicated NO My Orders Orders - SUHAS DYER Cbc With Automated Diff (06/19/17 10:37) Comprehensive Metabolic Panel (06/19/17 10:37) Hs C Reactive Protein (06/19/17 10:37) Hip, Left, 2 Views (5/13/18 10:37) Fentanyl Injection (Sublimaze Injection (06/19/17 10:45) Iv Heplock-Insert (Order) (06/19/17 10:37) Ct Extremity Lower Left Wo (06/19/17 11:48) Orphenadrine Injection (Norflex Injectio (06/19/17 12:30) Ketorolac Injection (Toradol Injection) (06/19/17 12:30) Ua Culture If Indicated (06/19/17 13:06) Fentanyl Injection (Sublimaze Injection (06/19/17 14:30) Medications Given in ED Current Medications Medications Dose Ordered Sig/Ole Route Start Time Stop Time Status Last Admin Dose Admin Fentanyl Citrate 50 mcg ONCE ONCE IVP 06/19/17 10:45 06/19/17 10:46 DC 06/19/17 10:50 50 MCG Fentanyl Citrate 50 mcg ONCE ONCE IVP 06/19/17 14:30 06/19/17 14:31 DC 06/19/17 14:24 50 MCG Ketorolac Tromethamine 10 mg ONCE ONCE IVP 06/19/17 12:30 06/19/17 12:31 DC 06/19/17 12:56 10 MG Orphenadrine Citrate 30 mg ONCE ONCE IM 06/19/17 12:30 06/19/17 12:31 DC 06/19/17 12:56 30 MG Vital Signs/I&O 06/19/17 10:29 Temp 98.2 Pulse 80 Resp 18 B/P (MAP) 175/134 (148) Pulse Ox 96 Progress Progress Note #1: Time: 11:45 Progress Note X-ray doesn't reveal anything. Patient's tonsils and there is no trauma however her inability to walk on it have recommended a CT scan of her left hip to rule out occult, pathologic fracture. Her pain is fine as long she is lying is just when she moves it starts to hurt very severely. She still has no improvement in her range of motion despite the fentanyl however she has a little more foggy with difficulty making decisions probably secondary to the opiates. We have offered her a muscle relaxant but she has declined at this time. She says in the past this happened she went to [place] and they gave her an injection of some sort and that made it better. She just wants to be old make it to her appointment Tuesday. We discussed if she would have any family or anyone that can stay at home and help her get around and be mobile until that time versus needing to do a short stay for some inpatient physical therapy. Progress Note #2: Time: 12:30 Progress Note Patient's symptoms really haven't changed since the fentanyl. No occult fracture seen on CT. Her GFR is good never any liver tenderness milligrams of Toradol and we have discussed using a muscle relaxant she is okay with it so where he is a half dose of Norflex. Either way there is no way she can go home as she does not have appropriate support at home from family or other sources. We have offered her a stay in acute rehabilitation unit here but she says she would prefer to go back to [facility] and says where she lives by [place] and this were all her family is. We have called [facility] call to see how we can set this up but if they will take her today may observe her for her debilitating left leg pain overnight and try again in the morning. [facility] call advises that the it coordinator Laura can be reached at [phone] Tuesday morning. Progress Note #3: Time: 15:21 Progress Note The patient's son has shown up and insists that he would be more than capable of taking care of his mother along with his girlfriend. She is consented to this and she has a plan with some pain medicine, MiraLAX and Flexeril and he will help her get to her outpatient orthopedic appointment. Diagnostic Imaging Diagonstic Imaging: Xray Plain Films/CT/US/NM/MRI: pelvis (2v left hip) Comments NAME: JANINE CORONADO MED REC#: [id number] PHYSICIAN: SUHAS DYER MD CC: ABDIAZIZ TOLEDO DO; SUHAS DYER Page 1 of 1 RADIOLOGY REPORT VIA [facility]. [place], [place] CC: ABDIAZIZ TOLEDO DO; SUHAS DYER Page 1 of 1 RADIOLOGY REPORT NAME: JANINE CORONADO MED REC#: [id number] PT STATUS: REG ER : 1930 PHYSICIAN: SUHAS DYER MD ADMIT DATE: 06/19/17/ER Signed Date of Exam: 06/19/17 HIP, LEFT, 2 VIEWS INDICATION: Increasing left hip pain, chronic in nature. No known trauma. TECHNIQUE: 2 views of the left hip. CORRELATION STUDY: 05/13/2013 FINDINGS: Images of the hip demonstrate no evidence for acute fracture. Alignment is anatomic. The femoral head acetabular relationship is unremarkable. The bony trabecular pattern is intact. IMPRESSION: 1. Negative for acute bony abnormality of the left hip. Dictated by: Dictated on workstation # [id number] Dict: 06/19/17 110 Trans: 06/19/171107 Interpreted by: ABDIAZIZ TOLEDO DO Electronically signed by: ABDIAZIZ TOLEDO DO 06/19/171107 Reviewed: Reviewed by Vt Diagonstic Imaging: CT Plain Films/CT/US/NM/MRI: pelvis (left hip) Comments No acute osseous abnormalities. VIA [facility]. [place], [place] NAME: JANINE CORONADO [facility] REC#: [id number] PT STATUS: REG ER : 1930 PHYSICIAN: SUHAS DYER MD ADMIT DATE: 06/19/17/ER Draft Date of Exam:06/19/17 CT EXTREMITY LOWER LEFT WO PROCEDURE: CT left lower extremity without contrast. TECHNIQUE: Multiple contiguous axial images were obtained through the left lower extremity without the use of intravenous contrast. Sagittal and coronal reformations were then performed. INDICATION: Chronic left hip pain which is increasing in severity. No known trauma. FINDINGS: The femoral head acetabular relationship is maintained apart from mild joint space narrowing. The bony trabecular pattern is intact. There is no acute fracture. No reparative type changes to suggest a chronic reparative process. There is mild diffuse bony demineralization suggested. The left pubic rami appearing unremarkable. The visualized portion of the pubic symphysis and partial visualization of the left SI joint is unremarkable. Left iliacus muscle and tendon do appear to be slightly thickened as it courses over the hip. Urinary bladder is noted to be mildly distended. Colonic diverticulosis of the visualized portion of the sigmoid colon. IMPRESSION: Negative for acute bony abnormality about the left hip. Mild joint space narrowing and bony demineralization. There does appear to be small hip joint effusion. There is also slight thickening of the iliacus tendon as it courses over the hip. 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 Decision time for Depature: 15:24 Referrals: SANDRINE SOUZA MD (PCP/Family) Primary Care Physician Patient Instructions: Preventing Falls in the Older Adult Add. Discharge Instructions: You may use the hydrocodone one tablet every 4 hours as needed for pain. You can also use Tylenol 650 mg every 8 hours. You can use creams such as icy hot or Biofreeze to your hip. You can also use heating pads or an ice pack. If you have muscle spasms in your hip you can take one tablet of the Flexeril every 8 hours as needed. As long as you're using the hydrocodone you should be using 1 capful of MiraLAX mixed in 6-8 ounces of fluids a day to keep your stools moving normally. Keep your follow-up appointment with the orthopedic surgeon Tuesday. Scripts Hydrocodone Bit/Acetaminophen (Hydrocodone/Acetaminophen 5/325mg Tablet) 1 Tab Tab 1 EACH PO Q4H PRN for BREAKTHROUGH PAIN, #20 TAB 0 Refills Prov: SUHAS DYER 06/19/17 Cyclobenzaprine HCl (Cyclobenzaprine HCl) 10 Mg Tablet 10 MG PO Q8H PRN for SPASMS, #20 TAB 0 Refills Prov: SUHAS DYER 06/19/17 Copy Copies To 1: SANDRINE SOUZA MD, TITUS J June 19, 2017 10:40
[2017-06-19] MEDS ORDERED: fentaNYL INJECTION 100 MCG/2 ML AMP IVP ONE ×2 (10:45→14:30)
[2017-06-19 11:01] LABS: BASOPHILS % (AUTO) 0 % (0-10); EOSINOPHILS # (AUTO) 0.1 10^3/uL (0.0-0.3); EOSINOPHILS % (AUTO) 2 % (0-10); HEMATOCRIT 37 % (35-52); HEMOGLOBIN 12.2 G/DL (11.5-16.0); LYMPHOCYTES # (AUTO) 1.1 X 10^3 (1.0-4.0); LYMPHOCYTES % (AUTO) 18 % (12-44); MEAN CORPUSCULAR HEMOGLOBIN 32 PG (25-34); MEAN CORPUSCULAR HGB CONC 33 G/DL (32-36); MEAN CORPUSCULAR VOLUME 98 FL (80-99); MEAN PLATELET VOLUME 11.5 FL (7.4-10.4); MONOCYTES # (AUTO) 0.6 X 10^3 (0.0-1.0); MONOCYTES % (AUTO) 10 % (0-12); NEUTROPHILS # (AUTO) 4.2 X 10^3 (1.8-7.8); NEUTROPHILS % (AUTO) 70 % (42-75); PLATELET COUNT 185 10^3/uL (130-400); RED CELL DISTRIBUTION WIDTH 13.4 % (10.0-14.5)
--- NOTE | 2017-06-19 11:11 | Diagnostic Imaging Report ---
INDICATION: Increasing left hip pain, chronic in nature. No known trauma. TECHNIQUE: 2 views of the left hip. CORRELATION STUDY: 05/13/2013 FINDINGS: Images of the hip demonstrate no evidence for acute fracture. Alignment is anatomic. The femoral head acetabular relationship is unremarkable. The bony trabecular pattern is intact. IMPRESSION: 1. Negative for acute bony abnormality of the left hip. Dictated by: Dictated on workstation # [id number]
[2017-06-19 11:20] LABS: ALANINE AMINOTRANSFERASE 10 U/L (0-55); ALBUMIN 3.8 GM/DL (3.2-4.5); ALKALINE PHOSPHATASE 66 U/L (40-136); BILIRUBIN,TOTAL 0.5 MG/DL (0.1-1.0); BUN/CREATININE RATIO 19; CALCIUM 9.8 MG/DL (8.5-10.1); CARBON DIOXIDE 21 MMOL/L (21-32); CHLORIDE 109 MMOL/L (98-107); CREATININE SERUM 0.84 MG/DL (0.60-1.30); GFR ESTIMATED > 60; GLUCOSE 93 MG/DL (70-105); SODIUM 140 MMOL/L (135-145); TOTAL PROTEIN 6.2 GM/DL (6.4-8.2)
--- NOTE | 2017-06-19 12:27 | Diagnostic Imaging Report ---
PROCEDURE: CT left lower extremity without contrast. TECHNIQUE: Multiple contiguous axial images were obtained through the left lower extremity without the use of intravenous contrast. Sagittal and coronal reformations were then performed. INDICATION: Chronic left hip pain which is increasing in severity. No known trauma. FINDINGS: The femoral head acetabular relationship is maintained apart from mild joint space narrowing. The bony trabecular pattern is intact. There is no acute fracture. No reparative type changes to suggest a chronic reparative process. There is mild diffuse bony demineralization suggested. The left pubic rami appearing unremarkable. The visualized portion of the pubic symphysis and partial visualization of the left SI joint is unremarkable. Left iliacus muscle and tendon do appear to be slightly thickened as it courses over the hip. Urinary bladder is noted to be mildly distended. Colonic diverticulosis of the visualized portion of the sigmoid colon. IMPRESSION: Negative for acute bony abnormality about the left hip. Mild joint space narrowing and bony demineralization. There does appear to be small hip joint effusion. There is also slight thickening of the iliacus tendon as it courses over the hip. Dictated by: Dictated on workstation # [id number]
[2017-06-19] MEDS ORDERED: ORPHENADRINE 60 MG/2 ML (NORFLEX) AMP IM ONE (12:30)
[2017-06-19] MEDS ORDERED: KETOROLAC 30 MG/ML VIAL IVP ONE (12:30)
[2017-06-19 13:17] LABS: BILIRUBIN,URINE NEGATIVE (NEGATIVE); CLARITY,URINE CLEAR; COLOR,URINE YELLOW; GLUCOSE, URINE (UA) NEGATIVE (NEGATIVE); KETONES,URINE NEGATIVE (NEGATIVE); LEUKOCYTE ESTERASE ,URINE NEGATIVE (NEGATIVE); NITRITE,URINE NEGATIVE (NEGATIVE); PH,URINE 7 (5-9); PROTEIN,URINE NEGATIVE (NEGATIVE); UROBILINOGEN,URINE NORMAL (NORMAL)
[2017-06-19 13:27] LABS: BACTERIA,URINE NEGATIVE /HPF; RBC,URINE RARE /HPF
--- OUTSIDE RECORDS SUMMARY | 2017-06-19 14:37 | XMS REPORT | Continuity of Care Document ---
Author Author [facility] Organization [facility] Address Unknown Phone Unavailable Allergies Active Description Code Type Severity Reaction Onset Reported/Identified Relationship to Patient Clinical Status Yes Gatifloxacin [id number] Drug Allergy Unknown N/A 01/20/2017 Yes penicillin G [id number] Drug Allergy Unknown N/A 01/20/2017 Medications There [...] V43.65 KNEE JOINT REPLACEMENT STATUS 05/14/2013 HARLEY EPÑA, SANDRINE Pedraza Ot V58.66 LONG-TERM (CURRENT) USE OF ASPIRIN 06/16/2013 YORDY WALLS [employer] Ot 593.9 RENAL URETERAL DIS NOS 06/16/2013 YORDY WALLS [employer] Ot 599.0 URIN TRACT INFECTION NOS 06/16/2013 YORDY WALLS [employer] MAIL [employer] Ot 789.00 ABDOMINAL PAIN, UNSPECIFIED SITE 12/28/2013 HERMELINDA PEÑA, FRANCES Vasquez Ot 724.02 SPINAL STENOSIS, LUMBAR REG, W/OUT NEURO 12/28/2013 FRANCES SHEN MD Ot V57.1 PHYSICAL THERAPY NEC 12/02/2014 KYAW VILLEGAS [employer] DEL[employer] MAIL [employer]ER Ot R13.19 12/02/2014 KYAW VILLEGAS [employer] DELIV[employer] MAIL CARRIER Ot R49.0 12/10/2014 Ot 401.9 12/10/2014 Ot 786.50 12/10/2014 Ot 396.3 12/10/2014 Ot 786.09 12/10/2014 Ot 272.4 12/10/2014 Ot 401.9 12/10/2014 Ot 786.50 12/10/2014 KYAW VILLEGAS [employer] DELIV[employer] MAIL [employer]RIER Ot R13.19 12/10/2014 KYAW VILLEGAS SPECIAL DELIVERY MAIL CARRIER Ot R49.0 12/10/2014 Ot 396.3 12/10/2014 Ot 786.09 12/10/2014 Ot 272.4 12/10/2014 Ot 401.9 12/10/2014 Ot 786.50 12/10/2014 KYAW VILLEGAS SPECIAL DELIV[employer] MAIL CARRIER Ot R13.19 12/10/2014 KYAW VILLEGAS SPECIAL DELIVERY MAIL CARRIER Ot R49.0 12/20/2014 KYAW VILLEGAS SPECIAL DELIVERY MAIL CARRIER Ot R13.19 12/20/2014 KYAW VILLEGAS [employer] DELIV[employer] MAIL CARRIER Ot R49.0 01/06/2015 NEDA PRINCE Ot M54.2 01/17/2015 KYAW VILLEGAS [employer] DEL[employer] MAIL [employer]ER Ot M47.812 01/22/2015 VISHNU PEÑA, RAJWINDER Nguyen [...] 04/24/2016 BUDDY TRACEY MD Ot Z79.899 OTHER MANAGER VALIDATION (CURRENT) DRUG THERAPY 05/18/2016 KYAW VILLEGAS APRN [...] OTHER SPECIFIED FACTORS, INI 06/08/2016 KYAW VILLEGAS [employer] DEL[employer] MAIL [employer] Ot Y99.8 OTHER EXTERNAL CAUSE STATUS 01/20/2017 [...] 06/08/2017 BUDDY TRACEY MD Ot Z79.899 OTHER MANAGER VALIDATION (CURRENT) DRUG THERAPY 06/08/2017 KYAW VILLEGAS APRN [...] On 81.54 TOTAL KNEE REPLACEMENT 02/19/2009 Results Test Result Range Complete blood count (CBC) with automated white blood cell (WBC) differential - 06/19/17 10:50 Blood leukocytes automated count (number/volume) 6.0 10*3/uL 4.3-11.0 Blood erythrocytes automated count (number/volume) 3.80 10*6/uL 4.35-5.85 Venous blood hemoglobin measurement (mass/volume) 12.2 g/dL 11.5-16.0 Blood hematocrit (volume fraction) 37 % 35-52 Automated erythrocyte mean corpuscular volume 98 [foz_us] 80-99 Automated erythrocyte mean corpuscular hemoglobin (mass per erythrocyte) 32 pg 25-34 Automated erythrocyte mean corpuscular hemoglobin concentration measurement ( mass/volume) 33 g/dL 32-36 Automated erythrocyte distribution width ratio 13.4 % 10.0-14.5 Automated blood platelet count (count/volume) 185 10*3/uL 130-400 Automated blood platelet mean volume measurement 11.5 [foz_us] 7.4-10.4 Automated blood neutrophils/100 leukocytes 70 % 42-75 Automated blood lymphocytes/100 leukocytes 18 % 12-44 Blood monocytes/100 leukocytes 10 % 0-12 Automated blood eosinophils/100 leukocytes 2 % 0-10 Automated blood basophils/100 leukocytes 0 % 0-10 Blood neutrophils automated count (number/volume) 4.2 10*3 1.8-7.8 Blood lymphocytes automated count (number/volume) 1.1 10*3 1.0-4.0 Blood monocytes automated count (number/volume) 0.6 10*3 0.0-1.0 Automated eosinophil count 0.1 10*3/uL 0.0-0.3 Automated blood basophil count (count/volume) 0.0 10*3/uL 0.0-0.1 Comprehensive metabolic panel - 06/19/17 10:50 Serum or plasma sodium measurement (moles/volume) 140 mmol/L 135-145 Serum or plasma potassium measurement (moles/volume) 4.0 mmol/L 3.6-5.0 Serum or plasma chloride measurement (moles/volume) 109 mmol/L 98-107 Carbon dioxide 21 mmol/L 21-32 Serum or plasma anion gap determination (moles/volume) 10 mmol/L 5-14 Serum or plasma urea nitrogen measurement (mass/volume) 16 mg/dL 7-18 Serum or plasma creatinine measurement (mass/volume) 0.84 mg/dL 0.60-1.30 Serum or plasma urea nitrogen/creatinine mass ratio 19 NRG Serum or plasma creatinine measurement with calculation of estimated glomerular filtration rate > NRG Serum or plasma glucose measurement (mass/volume) 93 mg/dL 70-105 Serum or plasma calcium measurement (mass/volume) 9.8 mg/dL 8.5-10.1 Serum or plasma total bilirubin measurement (mass/volume) 0.5 mg/dL 0.1-1.0 Serum or plasma alkaline phosphatase measurement (enzymatic activity/volume) 66 U/L 40-136 Serum or plasma aspartate aminotransferase measurement (enzymatic activity/ volume) 15 U/L 5-34 Serum or plasma alanine aminotransferase measurement (enzymatic activity/volume ) 10 U/L 0-55 Serum or plasma protein measurement (mass/volume) 6.2 g/dL 6.4-8.2 Serum or plasma albumin measurement (mass/volume) 3.8 g/dL 3.2-4.5 Serum or plasma C reactive protein measurement (mass/volume) - 06/19/17 10:50 Serum or plasma C reactive protein measurement (mass/volume) 0.47 mg /dL 0.00-0.50 Complete urinalysis with reflex to culture - 06/19/17 13:10 Urine color determination YELLOW NRG Urine clarity determination CLEAR NRG Urine pH measurement by test strip 7 5-9 Specific gravity of urine by test strip 1.010 1.016- 1.022 Urine protein assay by test strip, semi-quantitative NEGATIVE NEGATIVE Urine glucose detection by automated test strip NEGATIVE NEGATIVE Erythrocytes detection in urine sediment by light microscopy NEGATIVE NEGATIVE Urine ketones detection by automated test strip NEGATIVE NEGATIVE Urine nitrite detection by test strip NEGATIVE NEGATIVE Urine total bilirubin detection by test strip NEGATIVE NEGATIVE Urine urobilinogen measurement by automated test strip (mass/volume) NORMAL NORMAL Urine leukocyte esterase detection by dipstick NEGATIVE NEGATIVE Automated urine sediment erythrocyte count by microscopy (number/high power field) RARE NRG Automated urine sediment leukocyte count by microscopy (number/high power field ) NONE NRG Bacteria detection in urine sediment by light microscopy NEGATIVE NRG Crystals detection in urine sediment by light microscopy NONE NRG Casts detection in urine sediment by light microscopy NONE NRG Mucus detection in urine sediment by light microscopy NEGATIVE NRG Complete urinalysis with reflex to culture NO NRG Encounters ACCT No. Visit Date/Time Discharge Status Pt. Type Provider Facility Loc./Unit Complaint [id number] 06/10/2017 09:29:00 06/10/2017 23:59:59 CLS Outpatient SANDRINE SOUZA MD [facility] RAD ABDOMINAL PAIN [id number] 01/27/2017 09:00:00 01/27/2017 23:59:59 CLS Preadmit ARVIND ANDERSON MD [facility] ENDO SCREENING [id number] 01/20/2017 05:59:00 01/20/2017 12:37:00 DIS Outpatient ARVIND ANDERSON MD [facility] PREOP COLONOSCOPY [id number] 05/17/2016 09:23:00 05/17/2016 23:59:59 CLS Outpatient KYAW VILLEGAS APRN [facility] RAD RIGHT SHOULDER PAIN [id number] 04/24/2016 16:22:00 04/24/2016 18:24:00 DIS Emergency JESSICA PEÑA, MYLENE Kearney [facility] ER R SHOULDER/ARM PAIN [id number] 09/29/2015 10:52:00 09/29/2015 12:25:00 DIS Emergency GLYNN FORD [facility] ER POSS EYE/SKIN CONTACT W/ANT POISON [id number] 02/10/2015 13:24:00 02/10/2015 23:59:59 CLS Outpatient BUDDY TRACEY MD [facility] CARD DISC DISORDER WITH RADICULOPATHY [id number] 01/22/2015 13:44:00 01/22/2015 16:56:00 DIS Emergency RAJWINDER MARES MD [facility] ER HEADACHE/NECK PAIN [id number] 12/27/2014 09:11:00 12/27/2014 23:59:59 CLS Outpatient KYAW VILLEGAS APRN [facility] RAD SEVERE DEGENERATIVE DISEASE [id number] 12/10/2014 11:15:00 12/10/2014 23:59:59 CLS Outpatient NEDA PRINCE WOOD MECHANIST [facility] RAD NECK PAIN [id number] 11/27/2014 09:16:00 11/27/2014 23:59:59 CLS Outpatient KYAW VILLEGAS [employer] DEL[employer] MAIL [employer] [facility] RAD HOARSNESS, DIFFICULTY SWALLOWING,DYSPHAGIA [id number] 12/28/2013 09:13:00 12/28/2013 15:43:00 DIS Outpatient HERMELINDA PEÑA, FRANCES Vasquez [facility] REHAB LUMBAR STENOSIS [id number] 06/16/2013 19:20:00 06/16/2013 21:38:00 DIS Emergency YORDY WALLS [employer] DEL[employer] MAIL [employer]RIER [facility] ER STOMACH PAIN FEVER [id number] 05/13/2013 20:50:00 05/14/2013 11:08:00 DIS Inpatient HARLEY PEÑA, SANDRINE Pedraza [facility] ICU INTRACTABLE PAIN;ADVERSE REACTION TO MORPHINE SULF [id number] 06/19/2017 11:04:00 Document Registration [id number] 01/20/2017 14:38:00 Document Registration [id number] 03/13/2015 17:37:00 Document Registration [id number] 12/10/2014 11:00:00 Document Registration [id number] 10/04/2011 08:06:00 Document Registration [id number] 06/23/2011 09:43:00 Document Registration [id number] 12/24/2009 11:02:00 Document Registration [id number] 12/08/2016 12:07:46 12/08/2016 23:59:59 CLS Outpatient
[2017-06-19] MEDS ORDERED: CYCL10TA9 PO (15:27)
[2017-06-19] MEDS ORDERED: ACHD5005 PO (15:27)
[2017-06-19 15:32] VITALS: BP 144/44
== END 2017-06-19 15:31 | disposition home or self-care (01) ==
LOC: EDUNIT# 10:28 → ER 10:29 → 4TH 14:32 → UNDOADMOB 14:32
DX: M25.552 Pain in left hip (principal); M19.90 Unspecified osteoarthritis, unspecified site; R53.81 Other malaise; I10 Essential (primary) hypertension; F41.9 Anxiety disorder, unspecified; Z87.19 Personal history of other diseases of the digestive system; Z88.0 Allergy status to penicillin; Z88.1 Allergy status to other antibiotic agents
CPT/HCPCS: 36415; 73502; 73700; 80053; 81000; 85025; 86141; 96372; 96374; 96375; 96376

== ENCOUNTER 2018-06-03 17:16 | Emergency (ER) | payer MEDICARE, OTHER ==
[~2018-06-03] VITALS: Ht 167.6 cm; Wt 79.4 kg
[~2018-06-03 17:16] MED LIST changes: +CYCL10TA9 PO
[2018-06-03] MEDS ORDERED: KETOROLAC 60 MG/2 ML VIAL IM STA (17:57)
[2018-06-03] MEDS ORDERED: CYCLOBENZAPRINE 10 MG (FLEXERIL) TAB PO STA (17:57)
--- NOTE | 2018-06-03 19:04 | Diagnostic Imaging Report ---
INDICATION: Right-sided neck pain. TIME OF EXAM: 6:13 p.m. EXAMINATION: Three views of the cervical spine were obtained. FINDINGS: Patient is severely demineralized. This does limit evaluation. Patient also severely kyphotic. There is severe multilevel degenerative disc disease with disc space narrowing and marginal spurring. No definite fracture is identified. There is severe bilateral facet arthropathy. The odontoid is difficult to evaluate on this study but does appear to be intact. IMPRESSION: Severe degenerative changes and hyperkyphosis. No definite acute abnormality is Detected. Dictated by: Dictated on workstation # [id number]
[2018-06-03] MEDS ORDERED: CYCL10TA9 PO (19:10)
--- NOTE | 2018-06-03 19:11 | ED Neck-Back Pain/Injury ---
General Chief Complaint: Head/Cervical Problems Stated Complaint: NECK/SHOULDER PAIN Nursing Triage Note: patient advise sthat she awoke with neck pain ysterday morning and advises the pain has not improved. Pt. denies hx of injury. Nursing Sepsis Screen: No Definite Risk History of Present Illness Date Seen by Provider: Jun 03, 2018 Time Seen by Provider: 17:25 Initial Comments 87-year-old female reports awakening yesterday with neck and bilateral trapezius pain. She takes meloxicam 15 mg daily for arthritis. Her neck pain has persisted that she denies paresthesias or radicular symptoms in her upper extremities. She has no history of injury to her neck. Location: C-Spine Timing/Duration: 2-3 Days Severity: Mild Pain/Injury Location: None Method of Injury: Unknown Associated Symptoms: muscle spasms; No fever, No weakness, No numbness in legs/ feet, No tingling in legs/feet, No sensory/motor loss, No lower back pain, No loss of bladder control, No loss of bowel control Allergies and Home Medications Allergies Coded Allergies: gatifloxacin (Verified Allergy, Unknown, 01/20/17) penicillin G (Verified Allergy, Unknown, 01/20/17) Home Medications Cyclobenzaprine HCl 10 Mg Tablet, 10 MG PO Q8H PRN for SPASMS Prescribed by: SUHAS DYER on 06/19/17 1527 Cyclobenzaprine HCl 10 Mg Tablet, 10 MG PO Q8H PRN for MUSCLE SPASMS Prescribed by: EDUARDO MOY on 06/03/18 191 Hydrocodone Bit/Acetaminophen 1 Tab Tab, 1 EACH PO Q4H PRN for BREAKTHROUGH PAIN Prescribed by: SUHAS DYER on 06/19/17 1527 Multivitamin 1 Each Tablet, 1 EACH PO DAILY, (Reported) Ranitidine HCl 150 Mg Tablet, 150 MG PO DAILY, (Reported) Patient Home Medication List Home Medication List Reviewed: Yes Review of Systems Constitutional: no symptoms reported, see HPI Musculoskeletal: see HPI, neck pain All Other Systems Reviewed Negative Unless Noted: Yes Past Didwhhw-Krwmpp-Wvraer Hx Past Med/Social Hx: Reviewed Nursing Past Med/Soc Hx Patient Social History Alcohol Use: Denies Use Recreational Drug Use: No Smoking Status: Never a Smoker 2nd Hand Smoke Exposure: No Recent Foreign Travel: No Contact w/Someone Who Travel: No Recent Infectious Disease Expo: No Recent Hopitalizations: No Immunizations Up To Date Tetanus Booster (TDap): More than 5yrs Date of Pneumonia Vaccine: Feb 22, 2012 Seasonal Allergies Seasonal Allergies: No Past Medical History Surgeries: Yes (L TOTAL KNEE REPLACEMENT) Respiratory: No Cardiac: No Hypertension Neurological: No Reproductive Disorders: No Female Reproductive Disorders: Denies Sexually Transmitted Disease: No HIV/AIDS: No Genitourinary: No Gastrointestinal: Yes Chronic Constipation Musculoskeletal: Yes (SPINAL STENOSIS, SHOULDER PROBLEMS) Arthritis, Chronic Back Pain Endocrine: No HEENT: No Loss of Vision: Bilateral Hearing Impairment: Hard of Hearing Cancer: No Psychosocial: No Anxiety Integumentary: No Blood Disorders: No Adverse Reaction/Blood Tranf: No (N/A) Family Medical History No Pertinent Family Hx Physical Exam Vital Signs Vital Signs - First Documented 06/03/18 17:21 Temp 98.2 Pulse 93 Resp 16 B/P (MAP) 127/72 (90) Pulse Ox 97 O2 Delivery Room Air Capillary Refill : Less Than 3 Seconds Height, Weight, BMI Height: 5'6.00" Weight: 175lbs. 0.0oz. 79.756554we; 30.1 BMI Method:Stated General Appearance: No Apparent Distress, WD/WN HEENT: PERRL/EOMI, TMs Normal, Normal ENT Inspection, Pharynx Normal Neck: Normal Inspection, Supple; No JVD; Limited Range of Motion (secondary to pain), Tender Lateral Cardiovascular: Regular Rate, Rhythm, No Edema, No Murmur, Normal Peripheral Pulses Respiratory: Chest Non Tender, Lungs Clear, Normal Breath Sounds Gastrointestinal: Normal Bowel Sounds, No Pulsatile Mass, Non Tender, Soft Neurologic/Psychiatric: Alert, Oriented x3, No Motor/Sensory Deficits, Normal Mood/Affect Skin: Normal Color, Warm/Dry Progress/Results/Core Measures Results/Orders My Orders Orders - EDUARDO MOY Ketorolac Injection (Toradol Injection) (06/03/18 17:57) Cyclobenzaprine Tablet (Flexeril Tablet) (06/03/18 17:57) Cervical Spine 3 Views Or Less (06/03/18 17:59) Vital Signs/I&O 06/03/18 06/03/18 17:21 19:15 Temp 98.2 Pulse 93 76 Resp 16 14 B/P (MAP) 127/72 (90) 127/72 (90) Pulse Ox 97 95 O2 Delivery Room Air Room Air Blood Pressure Mean: 90 Diagnostic Imaging Diagonstic Imaging: Xray Plain Films/CT/US/NM/MRI: c-spine Comments NAME: JANINE CORONADO [facility] REC#: [id number] PT STATUS: REG ER : 1930 PHYSICIAN: EDUARDO MOY ADMIT DATE: 06/03/18/ER Draft Date of Exam:06/03/18 CERVICAL SPINE 3 VIEWS OR LESS INDICATION: Right-sided neck pain. TIME OF EXAM: 6:13 p.m. EXAMINATION: Three views of the cervical spine were obtained. FINDINGS: Patient is severely demineralized. This does limit evaluation. Patient also severely kyphotic. There is severe multilevel degenerative disc disease with disc space narrowing and marginal spurring. No definite fracture is identified. There is severe bilateral facet arthropathy. The odontoid is difficult to evaluate on this study but does appear to be intact. IMPRESSION: Severe degenerative changes and hyperkyphosis. No definite acute abnormality is Detected. Dictated on workstation # [id number] Dict: 06/03/18 1842 Trans: 06/03/18 1904 [facility] [id number] Interpreted by: PIERRE TILLEY MD Electronically signed by: Reviewed: Reviewed by Me Departure Impression Primary Impression: Degenerative joint disease of cervical spine Qualified Codes: M47.812 - Spondylosis without myelopathy or radiculopathy, cervical region Disposition: 01 HOME, SELF-CARE Condition: Improved Departure-Patient Inst. Decision time for Depature: 18:40 Referrals: SANDRINE WHEAT MD (PCP/Family) Primary Care Physician Patient Instructions: Cervical Muscle Strain (DC), Generalized Neck Pain (DC) Add. Discharge Instructions: Alternate heat and ice to neck. Take muscle relaxant as prescribed. Gentle range of motion to your neck. Follow-up with Dr. Wheat if symptoms are not improving or worsen. Return to emergency department for new, urgent health care needs. All discharge instructions reviewed with patient and/or family. Voiced understanding. Scripts Cyclobenzaprine HCl (Cyclobenzaprine HCl) 10 Mg Tablet 10 MG PO Q8H PRN for MUSCLE SPASMS, #15 TAB 0 Refills Prov: EDUARDO MOY 06/03/18 Copy Copies To 1: SANDRINE WHEAT MD, AMY ARNP Jun 03, 2018 19:11
[2018-06-03 19:15] VITALS: BP 127/72
== END 2018-06-03 19:17 | disposition home or self-care (01) ==
LOC: EDUNIT# 17:16 → ER 17:18
DX: M47.812 Spondylosis without myelopathy or radiculopathy, cervical region (principal); I10 Essential (primary) hypertension; F41.9 Anxiety disorder, unspecified; Z87.19 Personal history of other diseases of the digestive system; Z88.1 Allergy status to other antibiotic agents; Z88.0 Allergy status to penicillin; Z96.651 Presence of right artificial knee joint
CPT/HCPCS: 72040